=== PATIENT | female | born 1960 | race Caucasian/White ===

== ENCOUNTER 2017-06-27 07:47 | Inpatient (IN) | payer BC ==
--- NOTE | 2017-06-05 10:14 | HISTORY & PHYSICAL EXAMINATION ---
DATE OF ADMISSION: 06/27/2017 PROCEDURE: Left total knee replacement. HISTORY OF PRESENT ILLNESS: The patient is a pleasant 56-year-old female who presents today for preop evaluation prior to left knee replacement. She states she was having pain in this knee for several years now, which has gradually worsened. It has now gotten to the point that it is affecting her daily activities including walking, standing, going up and down steps. She has tried previous oral anti-inflammatories including Aleve without relief. She has had previous injections including Synvisc-One and cortisone without relief. At this point in time, she has failed conservative measures and would like to proceed with left knee replacement. PAST MEDICAL HISTORY: 1. Hypothyroidism. 2. GERD. ALLERGIES: No known drug allergies. CURRENT MEDICATIONS: 1. Aleve as needed for pain. 2. Vitamin B12. 3. Vitamin D3. 4. Dexilant 60 mg daily. 5. Levothyroxine. PAST SURGICAL HISTORY: 1. Appendectomy. 2. Hysterectomy. 3. Cholecystectomy. FAMILY HISTORY: Noncontributory. 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 Denies any history of smoking or tobacco use. No alcohol consumption. REVIEW OF SYSTEMS: Otherwise negative. Please see HPI for pertinent positives. PHYSICAL EXAMINATION: GENERAL: A pleasant 56-year-old female in no acute distress, alert and oriented x3. She is 5 feet 6 inches, weighs 180 pounds. VITAL SIGNS: Blood pressure is 138/72, pulse 68, O2 sat 100%. HEENT: Normocephalic and atraumatic. CARDIAC: Regular rate and rhythm. No murmurs or gallops appreciated. Resting pulse 68 beats per minute. LUNGS: Clear to auscultation without rales or wheeze bilaterally. ABDOMEN: Soft, nontender. Bowel sounds present. EXTREMITIES: Left lower extremity is neurovascularly intact. Calves are soft and nontender. DP pulse +2. Demonstrates good quad tone. Straight leg raise without lag. No erythema or warmth. Mild effusion. Positive crepitation with motion. Range of motion is 0/5/110. Knee is ligamentously stable. IMAGING: Review of the left knee showed findings consistent with degenerative joint disease including joint space narrowing, subchondral sclerosis, osteophyte formation noted. Complete loss of joint space of the patellofemoral joint and lateral compartment. IMPRESSION: 1. Left knee degenerative joint disease. 2. Past medical history as outlined above. PLAN: Further care discussed with patient. At this point in time, has failed conservative measures and would like to proceed with a left knee replacement. We will plan on discharge home with home health therapy, otherwise she has no other questions or concerns.
[2017-06-05 11:58] VITALS: BMI 28.0
--- NOTE | 2017-06-05 12:20 | PAT Medication Instructions ---
Service Date Jun 05, 2017. Current Home Medication List Cholecalciferol (Vitamin D3), 1 TAB PO QAM Cyanocobalamin (Vitamin B12), 5,000 MCG PO QAM Dexlansoprazole (Dexilant), 1 CAP PO QAM Levothyroxine Sodium (Levothyroxine Sodium), 1 TAB PO QAM Multiple Vitamins W/ Minerals (Centrum Adults), 1 TAB PO QAM Nutritional Supplements (Juice Plus Fibre), 1 CAP PO QAM Medication Instructions For Your Scheduled Surgery - Hold the following medications the morning of surgery: Nutritional Supplements (Juice Plus Fibre), 1 CAP PO QAM Multiple Vitamins W/ Minerals (Centrum Adults), 1 TAB PO QAM Cholecalciferol (Vitamin D3), 1 TAB PO QAM Cyanocobalamin (Vitamin B12), 5,000 MCG PO QAM - Take the following medications the morning of surgery with a sip of water OTHERWISE NOTHING TO EAT OR DRINK AFTER MIDNIGHT: Dexlansoprazole (Dexilant), 1 CAP PO QAM Levothyroxine Sodium (Levothyroxine Sodium), 1 TAB PO QAM If you have any questions please call us at [phone] or [phone] or [phone]
--- NOTE | 2017-06-05 13:15 | DIAGNOSTIC IMAGING REPORT ---
TWO VIEW CHEST CLINICAL HISTORY: Preoperative examination. FINDINGS: PA and lateral chest radiographs are obtained. No prior studies are available for comparison at the time of dictation. The cardiomediastinal silhouette is unremarkable. There is atherosclerotic calcification of the thoracic aorta. Linear atelectasis is present at the left lung base. The lungs and pleural spaces are otherwise clear. Nodularity is question the left lower lobe. There is no pneumothorax. The there are healed right-sided rib fractures. Degenerative changes noted throughout the thoracic spine. Cholecystectomy clips are identified in the right upper quadrant. IMPRESSION: 1. No active disease in the chest. 2. Question nodularity in left lower chest. This may represent artifact/superimposition of shadows. A repeat examination with oblique views is recommended for reassessment. Electronically signed by: Abebe Costa M.D. 06/05/2017 1:13 PM Dictated Date/Time: 06/05/2017 1:12 PM
[2017-06-05 13:17] LABS: BASO % 0.4 %; BASO ABS # 0.02 K/uL (0-0.2); COMPLETE YES; EOS % 1.7 %; HEMATOCRIT 39.6 % (37-47); LYMPH % 32.9 %; LYMPH ABS # 1.74 K/uL (1.2-3.4); MEAN CELL VOLUME 84.8 fL (80-100); MEAN CORPUSCULAR HEMOGLOBIN 29.3 pg (25-34); MEAN CORPUSCULAR HGB CONC 34.6 g/dl (32-36); MEAN PLATELET VOLUME 9.9 fL (7.4-10.4); MONO % 2.6 %; NEUT % 62.4 %; PLATELET COUNT 159 K/uL (130-400); RED BLOOD COUNT 4.67 M/uL (4.2-5.4); WHITE BLOOD COUNT 5.29 K/uL (4.8-10.8)
[2017-06-05 13:28] LABS: URINE APPEARANCE CLEAR (CLEAR); URINE BILIRUBIN NEG (NEG); URINE COLOR YELLOW; URINE NITRITE NEG (NEG); URINE SPECIFIC GRAVITY 1.016 (1.000-1.030); UROBILINOGEN NEG (NEG); ZZUR CULT IF INDIC CLEAN CATCH YES
[2017-06-05 13:29] LABS: MANUAL MICROSCOPIC REQUIRED? NO; REVIEW REQ? NO
[2017-06-05 13:32] LABS: INR 0.9 (0.9-1.1); PARTIAL THROMBOPLASTIN RATIO 1.2
[2017-06-05 13:41] LABS: ESTIMATED AVERAGE GLUCOSE 100 mg/dl; HA1C FLAG Normal (Normal)
[2017-06-05 14:00] LABS: BUN/CREATININE RATIO 24.7 (10-20); CREATININE 0.66 mg/dl (0.60-1.20)
[~2017-06-27] VITALS: Ht 167.6 cm; Wt 79.4 kg
[2017-06-27] VITALS (8 sets, daily range): BP systolic 104–151; BP diastolic 64–102; PULSE 76–94; TEMP 36.3–36.9; O2SAT 96–99; Ht 167.6 cm; Wt 79.4 kg
[2017-06-27] MEDS: TRANEXAMIC ACID INJ 1,000 MG in SYRINGE 0 ML IV SCH ×2 (06:30→10:13)
--- NOTE | 2017-06-27 07:18 | History & Physical Bridge Note ---
H&P Re-Evaluation Bridge Note: I have examined the patient, reviewed the History & Physical and in the interval since the performance of the History & Physical I have noted the following changes of clinical significance: No changes noted
[~2017-06-27 07:47] MED LIST: ACETAMINOPHEN 500 MG TAB PO SCH; BUPIVACAINE 0.5 % 5 MG/1 ML PF 10ML VIAL ONE; CEFAZOLIN 1000MG IV PUSH 5 ML IV SCH; CHOL500021 PO; CYAN100020 PO; CeleBREX 200 MG CAP PO SCH; DEXAMETHASONE 4 MG TAB PO SCH; DEXL60CA4 PO; FAMOTIDINE 20 MG TAB PO SCH; GABAPENTIN 300 MG CAP PO SCH; LACTATED RINGER'S 1000ML 1,000 ML IV SCH; LACTATED RINGER'S 1000ML 500 ML IV ONE; LACTATED RINGER'S 1000ML IV SCH; LEVO100T7 PO; METOCLOPRAMIDE HCL 10 MG TAB PO SCH; MULT-610 PO; NUTR-218 PO; ROPIVACAINE 5MG/ML 30 ML 150 MG, BUPIVACAINE 0.5% MPF INJ 30 ML, EpINEphrine HCL INJ 0.... INFIL SCH
[2017-06-27] MEDS ORDERED: ONDANSETRON INJ 2 MG/ML 2 ML VIAL IV PRN ×2 (08:45→12:15)
[2017-06-27] MEDS ORDERED: EpHEDrine SULFATE INJ 50 MG/ML AMP IV PRN (08:45)
[2017-06-27] MEDS ORDERED: FENTANYL CITRATE INJ 50 MCG/1 ML 2 ML VIAL IV PRN (08:45)
[2017-06-27] MEDS ORDERED: ATROPINE SULFATE 0.1 MG/ML 5ML SYR IV PRN (08:45)
[2017-06-27] MEDS ORDERED: MIDAZOLAM HCL 1 MG/ML 2ML VIAL ONE (08:50)
[2017-06-27] MEDS ORDERED: POVIDONE-IODINE OP SOLN 30 ML BTL ONE (09:03)
[2017-06-27] MEDS ORDERED: ORTHO JOINT ANESTHETIC ONE (09:03)
[2017-06-27] MEDS ORDERED: BACITRACIN 50000 UNIT VIAL ONE (09:04)
[2017-06-27] MEDS ORDERED: LIDOCAINE HCL 2% 2 ML VIAL (20MG/ML) ONE (10:59)
[2017-06-27] MEDS ORDERED: PROPOFOL IV EMULSION 10 MG/ML 20 ML VIAL IV ONE (10:59)
--- NOTE | 2017-06-27 11:34 | [facility] Operative Report ---
Operative Report Operative Date Jun 27, 2017. Pre-Operative Diagnosis Left Knee Degenerative Joint Disease Post-Operative Diagnosis Left Knee Degenerative Joint Disease Procedure(s) Performed Left Total Knee Arthroplasty utilizing journey to patient-matched total knee arthroplasty size 4 femur 3 tibia 13 poly-[address] Nicola Sparks Clinical Director Surgeon(s) Bobo Alfonso PA-C Estimated Blood Loss 5ml Findings Patient presents severe end-stage Tri-Chlor milligrams joint disease valgus alignment subchondral sclerosis cystic changes marginal osteophytes nonresponse to conservative therapy including physical therapy anti-inflammatories relative rest activity modification bracing for left total knee arthroplasty Specimens A. Left knee bone and tissue Complication(s) None Disposition Recovery Room / PACU Indications Patient presents with severe end-stage tricompartmental degenerative joint disease valgus alignment subchondral sclerosis cystic changes osteophyte formation failing attempts at conservative management including injections physical therapy anti-inflammatories relative rest activity modification Description of Procedure After proper prepping and draping of the left lower extremity anterior midline incision was made over the region of the extensor extensor mechanism after meticulous hemostasis was obtained and maintained in subcutaneous tissues a medial parapatellar incision was made The patella was subluxed lateralward the medial lateral gutter were cleaned from any hypertrophic synovitis and scar tissue of the distal femoral block was placed and the distal femoral osteotomy cut was made subsequently the chamfers anterior and posterior osteotomy cuts were made utilizing the 4-in-1 block the tibia was subsequently subluxed anteriorward medial and ateral meniscal remnants were excised in their entirety remnants of the anterior and posterior cruciate ligaments were excised in their entirety excellent exposure of the proximal tibia was obtained the tibial osteotomy guide was placed on the proximal tibial osteotomy cut was made once again the knee was irrigated with copious amounts of sterile saline solution the patella was subsequently everted lateralward thickened scar tissue around the patella was removed the patella was subsequently cut utilizing a freehand technique and was drilled prepared for final preparation and placement of patella socially flexion-extension gaps were checked and the equal and symmetric trials were placed to the appropriate femoral and tibial trials with poly-spacer being placed for equal flexion and extension gaps and full range of motion including extension to 0 and flexion to 140 the trial components after having been taken to recovery range of motion was subsequently removed meticulous hemostasis was obtained and maintained subsequently a knee block injection of joint cocktail including ropivacaine 0.5% 150 mg. Bupivacaine 0.5 % epinephrine 1-200,030 mL's toradol 30 mg dexamethasone 4 mg ketamine 10 mg clonidine 100 micrograms normal saline solution 30 mg was infiltrated into the soft tissues of the posterior knee medial lateral gutters and periosteal synovium special attention was paid to protect neurovascular structures at all times subsequently trial components having been removed the knee was irrigated with sterile saline solution. debris was removed the proximal tibia was subsequently prepared and was made ready for the placement of the tibial component tibial component was also cemented and tamped into position the femoral component was subsequently placed and cemented in the position the patellar component was subsequently cemented in position because hemostasis once again obtained and maintained wound having been thoroughly irrigated with debridement and debridement lavage was performed as well as a medial parapatellar incision closed with #1 Vicryl in interrupted fashion subcutaneous was closed with #2 Vicryl skin was closed with skin clips. PA-C was necessary for prepping and drapping as well as wound closure of deep fascia Sub cutaneous tissue and skin and was necessary for the case. A sterile compressive dressing was placed patient was taken to recovery in stable condition of report dictated by Bridger I attest to the content of the Intraoperative Record and any orders documented therein. Any exceptions are noted below. I attest to the content of the Intraoperative Record and any orders documented therein. Any exceptions are noted below.
[2017-06-27] MEDS ORDERED: MAGNESIUM HYDROXIDE SUSP 30 ML UDC PO PRN (12:15)
[2017-06-27] MEDS ORDERED: ZOLPIDEM TARTRATE 5 MG TAB PO PRN (12:15)
[2017-06-27] MEDS ORDERED: OXYCODONE HCL IR 5 MG TAB (IMMEDIATE RELEASE) PO PRN (12:15)
[2017-06-27] MEDS ORDERED: MoRPHine SULFATE 2 MG/ML CARP IV PRN (12:15)
[2017-06-27] MEDS ORDERED: ALUMINUM/MAGNESIUM/SIMETH (MAALOX MAX) 30 ML UDC PO PRN (12:15)
[2017-06-27] MEDS ORDERED: SOD PHOSPHATE/SOD BIPHOSPHATE ENEMA 132 ML BTL PR PRN (12:15)
[2017-06-27] MEDS ORDERED: BISACODYL 10 MG SUPP PR PRN (12:15)
[2017-06-27] MEDS ORDERED: KETOROLAC TROMETHAMINE 30 MG/ML VIAL IV. PRN (12:15)
--- NOTE | 2017-06-27 12:45 | DIAGNOSTIC IMAGING REPORT ---
L KNEE 1 OR 2 VIEWS ROUTINE CLINICAL HISTORY: Postop knee arthroplasty COMPARISON: None. DISCUSSION: There are postsurgical changes of a total left knee arthroplasty and patellar resurfacing. The femoral and tibial components appear well seated. There are overlying surgical drains. There is air in soft tissues consistent with recent surgery IMPRESSION: Postsurgical changes of a total left knee arthroplasty. Electronically signed by: Tommy Burger M.D. 06/27/2017 12:44 PM Dictated Date/Time: 06/27/2017 12:44 PM
--- NOTE | 2017-06-27 13:38 | Anesthesiology Progress Note ---
Anesthesia Post Op Note Date & Time Jun 27, 2017 at 13:38 Vital Signs Pain Intensity: 0 Vital Signs Past 12 Hours Date Time Temp Pulse Resp B/P (MAP) Pulse Ox O2 Delivery O2 Flow Rate FiO2 06/27/17 13:10 37.5 87 16 118/80 98 Nasal Cannula 2 06/27/17 13:00 37.5 87 16 116/74 98 Nasal Cannula 2 06/27/17 12:50 37.5 85 16 128/80 99 Nasal Cannula 2 06/27/17 12:40 87 18 130/76 99 Nasal Cannula 2 06/27/17 12:30 85 18 130/84 99 Nasal Cannula 2 06/27/17 12:20 87 18 127/81 99 Nasal Cannula 2 06/27/17 12:10 36.8 88 18 136/82 99 Nasal Cannula 2 06/27/17 08:28 36.6 94 20 151/102 99 Room Air Notes Mental Status: alert / awake / arousable, participated in evaluation Pt Amnestic to Procedure: Yes Nausea / Vomiting: adequately controlled Pain: adequately controlled Airway Patency, RR, SpO2: stable & adequate BP & HR: stable & adequate Hydration State: stable & adequate Neuraxial Anesthesia: was administered, sensory block is resolving Anesthetic Complications: no major complications apparent
[2017-06-27] MEDS ORDERED: MoRPHine SULFATE 10 MG/ML CARP/VIAL IV PRN (14:30)
[2017-06-27] MEDS ORDERED: MoRPHine SULFATE 4 MG/ML 1 ML CARP\\VIAL IV PRN (14:30)
[2017-06-27] MEDS: D5W AND 1/2NSS + 20MEQ KCL 1,000 ML IV SCH (16:29)
[2017-06-27] MEDS: CEFAZOLIN IV 2,000 MG in SYRINGE 0 ML IV SCH (18:04)
[2017-06-27] MEDS ORDERED: SENNA 8.6 MG TAB PO SCH (21:00)
[2017-06-27] MEDS: DOCUSATE SODIUM 100 MG CAP PO SCH (21:00)
[2017-06-27] MEDS: ASPIRIN 81 MG ECTAB PO SCH (21:00)
[2017-06-27] MEDS: ACETAMINOPHEN 500 MG TAB PO SCH (21:01)
[2017-06-28] MEDS: D5W AND 1/2NSS + 20MEQ KCL 1,000 ML IV SCH ×2 (00:24→10:38)
[2017-06-28] MEDS: CEFAZOLIN IV 2,000 MG in SYRINGE 0 ML IV SCH (02:01)
[2017-06-28 03:15] VITALS: BP 118/73; PULSE 71; TEMP 36.5; O2SAT 97
[2017-06-28] MEDS: ACETAMINOPHEN 500 MG TAB PO SCH ×2 (05:54→13:08)
[2017-06-28] MEDS ORDERED: LEVOTHYROXINE 100 MCG TAB PO SCH (06:00)
[2017-06-28 06:57] LABS: HEMATOCRIT 34.9 % (37-47); MEAN CELL VOLUME 85.3 fL (80-100); MEAN CORPUSCULAR HEMOGLOBIN 29.6 pg (25-34); MEAN CORPUSCULAR HGB CONC 34.7 g/dl (32-36); MEAN PLATELET VOLUME 9.9 fL (7.4-10.4); PLATELET COUNT 199 K/uL (130-400); RED BLOOD COUNT 4.09 M/uL (4.2-5.4); WHITE BLOOD COUNT 12.66 K/uL (4.8-10.8)
[2017-06-28 07:04] LABS: PROTHROMBIN TIME (PATIENT) 10.4 SECONDS (9.0-12.0)
[2017-06-28 07:28] LABS: BUN/CREATININE RATIO 18.6 (10-20); CALCIUM 8.3 mg/dl (8.5-10.1); CREATININE 0.66 mg/dl (0.60-1.20); POTASSIUM 4.1 mmol/L (3.5-5.1)
--- NOTE | 2017-06-28 08:17 | Orthopedic Progress Note ---
Orthopedic Progress Note Date of Service Jun 28, 2017. Subjective Post OP Day: 1 Reports: feeling well, Denies: chest pain, SOB, nausea / vomiting, light headedness, calf pain Objective calves soft nontender, N/V intact, dressing C/D/I, A&O x3, toes mobile, hemovac drainage (110/175CC PER SHIFT) Date Time Temp Pulse Resp B/P (MAP) Pulse Ox O2 Delivery O2 Flow Rate FiO2 06/28/17 03:15 36.5 71 16 118/73 (88) 97 Room Air 06/28/17 00:20 Room Air 06/27/17 22:56 36.4 76 16 104/64 (77) 98 Room Air 06/27/17 20:22 36.5 76 16 104/66 (79) 99 Room Air 06/27/17 16:23 36.5 86 16 110/73 (85) 96 Room Air 06/27/17 15:30 Room Air 06/27/17 15:21 36.3 84 16 107/68 (81) 98 Nasal Cannula 2.0 06/27/17 14:14 85 18 115/78 (90) 06/27/17 13:50 87 18 107/75 (86) 06/27/17 13:20 Nasal Cannula 2.0 06/27/17 13:20 36.9 86 16 115/76 (89) 99 Nasal Cannula 2.0 06/27/17 13:10 37.5 87 16 118/80 98 Nasal Cannula 2 06/27/17 13:00 37.5 87 16 116/74 98 Nasal Cannula 2 06/27/17 12:50 37.5 85 16 128/80 99 Nasal Cannula 2 06/27/17 12:40 87 18 130/76 99 Nasal Cannula 2 06/27/17 12:30 85 18 130/84 99 Nasal Cannula 2 06/27/17 12:20 87 18 127/81 99 Nasal Cannula 2 06/27/17 12:10 36.8 88 18 136/82 99 Nasal Cannula 2 06/27/17 08:28 36.6 94 20 151/102 99 Room Air Laboratory Results 24 Hours: Test 06/28/17 06:01 Hematocrit 34.9 % Hemoglobin 12.1 g/dL Prothromb Time International Ratio 1.0 Prothrombin Time 10.4 SECONDS Assessment & Plan Assessment: POD#1 SP LEFT TKA Plan: PT/OT DVT PROPH- ASA 81MG PAIN MANAGEMENT DC PLANNING- LIKELY DC HOME TODAY WITH ADVANTAGE. WILL DC DRESSING AND DRAIN IN AM AT HOME. Inhouse Planning Pain Management: Celebrex, PO Tylenol, Oxy IR DVT Prophylaxis: TEDs, SCDs, ASA
[2017-06-28] MEDS ORDERED: ACET-24 PO (08:18)
[2017-06-28] MEDS ORDERED: SENN-61 PO (08:18)
[2017-06-28] MEDS ORDERED: RXC5 PO (08:18)
[2017-06-28] MEDS ORDERED: CLB200 PO (08:18)
[2017-06-28] MEDS ORDERED: ASPEC81 PO (08:18)
[2017-06-28] MEDS ORDERED: ONDA8TAB6 PO (08:18)
--- NOTE | 2017-06-28 08:19 | Discharge Instructions ---
Discharge Instructions Date of Service Jun 28, 2017. Admission Reason for Admission: Left Knee Osteoarthritis Discharge Discharge Diagnosis / Problem: SP LEFT TKA Discharge Goals Goal(s): Decrease discomfort, Improve function, Increase independence Activity Recommendations Activity Limitations: per Instructions/Follow-up section . Instructions / Follow-Up Instructions / Follow-Up ACTIVITY RECOMMENDATIONS: SELF CARE INSTRUCTIONS AFTER TOTAL KNEE REPLACEMENT A. You may need to continue a physical therapy program after discharge from the hospital. There are several options available to you. Your doctor will assist you in selecting the best one for you. 1. An out-patient facility 2 to 3 times a week for therapy or home therapy. 2. Continue working on all exercises taught to you in the hospital. Your goals should be to increase bending of your knee to 90 degrees and beyond and to fully straighten your knee. B. You may progress at your own pace from walking with a walker or crutches to a cane; then to no assistive devices. C. Make walking a part of your daily routine. Be up as much as comfortable with rest periods throughout the day. Rest with leg elevation is very important. Use the ice wrap frequently for the first 3-4 weeks. D. There are no restrictions on activities. You may ride in a car, shop, participate in intensive care anaesthetist and all social activities. E. Wear the long elastic stockings (GERTRUDE hose) 20 hours a day for 2 weeks after surgery. They can be removed several times a day for laundering and for a bath. F. You may shower, no tub baths until cleared by your doctor. SPECIAL CARE INSTRUCTIONS: VERY IMPORTANT TO READ AND REVIEW A. There are a few signs you need to watch for after you are home. Call [facility] if you notice any of the followin. Increased severe knee pain. Some pain is expected especially when you exercise. 2. Increased swelling in your leg or knee; pain or swelling of the calf muscle in either lower leg. 3. Any fluid drainage from the incision. 4. Shortness of breath or chest pain. B. Please call [facility] at if you have any concerns or questions about your operation or recovery. The doctor or his nurse will return your call promptly. C. You must take antibiotics before dental work, bladder, bowel or other surgery. Your doctor will provide you with a permanent care to carry describing this precaution. IMPORTANT: * REMEMBER TO TAKE ASPIRIN, 81 MG, TWICE DAILY FOR 4 WEEKS UNLESS OTHERWISE DIRECTED. THIS IS YOUR BLOOD THINNER. * HIGH RISK PATIENTS MAY BE PRESCRIBED A STRONGER BLOOD THINNER. THIS WILL BE PROVIDED AT DISCHARGE. * CALL IF INCREASED PAIN, REDNESS, DRAINAGE OR FEVER GREATER THAT 101. * WEAR GERTRUDE HOSE 20 HOURS PER DAY FOR 2 WEEKS. DERMABOND Prineo- This is a mesh tape dressing that is covered with glue. It should remain in place until the incision is properly healed, usually 10-14 days. This dressing is designed to naturally slough off. You may trim the excess mesh tape as it peels off. Incision may be briefly wet in a shower. Dry immediately by blotting with a clean, dry towel. Do not bath or swim until instructed by your doctor. Do not scratch, rub, or pick at the dressing. Do not apply any topical ointments or lotions until dressing is completely removed and/or instructed by your doctor. There may be a small piece of suture material at one end of your incision. Do not pull or trim this. If it is bothersome or catching on clothing, you may cover it with a band-aid. FOLLOW UP VISIT: If appointment is not already scheduled: Please call [facility] to make a follow-up appointment for 2 weeks after your surgery at . Current Hospital Diet Patient's current hospital diet: Regular Diet Discharge Diet Recommended Diet: Regular Diet Procedures Procedures Performed: Left Total Knee Arthroplasty utilizing journey to patient-matched total knee arthroplasty size 4 femur 3 tibia 13 poly-29 oval patella Pending Studies Studies pending at discharge: no Laboratory Results Hemoglobin A1c Test 06/05/17 12:37 Range/Units Estimated Average Glucose 100 mg/dl Hemoglobin A1c 5.1 4.5-5.6 % Medical Emergencies . Who to Call and When: Medical Emergencies: If at any time you feel your situation is an emergency, please call 911 immediately. . Non-Emergent Contact Non-Emergency issues call your: Surgeon . "Provider Documentation" section prepared by Hyun Mota. . VTE Core Measure Inpt VTE Proph given/why not?: Other Anticoagulation, T.E.D. Stockings, SCD's
[2017-06-28 08:24] VITALS: BP 118/73; PULSE 71; TEMP 36.5; O2SAT 97
[2017-06-28] MEDS: TRAMADOL HCL 50 MG TAB PO PRN ×2 (08:52→13:08)
[2017-06-28] MEDS: DOCUSATE SODIUM 100 MG CAP PO SCH (08:53)
[2017-06-28] MEDS: ASPIRIN 81 MG ECTAB PO SCH (08:55)
[2017-06-28] MEDS ORDERED: CYANOCOBALAMIN 2,500 MCG SUBL TAB PO SCH (09:00)
[2017-06-28] MEDS ORDERED: PANTOprazole SOD 40 MG TAB PO SCH ×2 (09:00)
[2017-06-28] MEDS ORDERED: MULTIVITAMIN TAB PO SCH (09:00)
[2017-06-28] MEDS ORDERED: CHOLECALCIFEROL 1000 INTER.UNIT TAB PO SCH (09:00)
--- NOTE | 2017-06-28 12:54 | Anesthesiology Progress Note ---
Anesthesia Post Op Note Date & Time Jun 28, 2017 at 12:54 Vital Signs Pain Intensity: 2.0 Vital Signs Past 12 Hours Date Time Temp Pulse Resp B/P (MAP) Pulse Ox O2 Delivery O2 Flow Rate FiO2 06/28/17 08:24 36.5 71 16 97 Room Air 06/28/17 07:45 Room Air 06/28/17 03:15 36.5 71 16 118/73 (88) 97 Room Air Notes Mental Status: alert / awake / arousable, participated in evaluation Pt Amnestic to Procedure: Yes Nausea / Vomiting: adequately controlled Pain: adequately controlled Airway Patency, RR, SpO2: stable & adequate BP & HR: stable & adequate Hydration State: stable & adequate Neuraxial Anesthesia: sensory block resolved Anesthetic Complications: no major complications apparent
--- NOTE | 2017-06-28 19:16 | Discharge Summary ---
Orthopedic Discharge Summary Admission Date/Reason Jun 27, 2017 at 08:25 Left Knee Osteoarthritis. Discharge Date/Disposition Jun 28, 2017 Home with services Diagnosis Principal Diagnosis: left knee osteoarthritis Procedure(s) Performed Left Total Knee Arthroplasty utilizing journey to patient-matched total knee arthroplasty size 4 femur 3 tibia 13 poly-29 oval patella Consultations NONE Medication Reconciliation New Medications: Ondansetron Hcl (Zofran) 8 Mg Tab 8 MG PO Q8 PRN for Nausea, #20 TAB Acetaminophen (Sb Non-Aspirin Extra Stre) 500 Mg Tab 1000 MG PO Q8 for 30 Days, #180 TAB Aspirin (Aspirin EC Low Dose) 81 Mg Ectab 81 MG PO BID for 30 Days Celecoxib (Celebrex) 200 Mg Cap 200 MG PO BID, #60 CAP Oxycodone HCl (Oxycodone HCl) 5 Mg Tab 5-10 MG PO Q4H PRN for Pain, #60 TAB Senna (Senokot) 8.6 Mg Tab 17.2 MG PO HS for 14 Days, TAB Continued Medications: Cholecalciferol (Vitamin D3) 5,000 Unit Chw 1 TAB PO QAM Cyanocobalamin (Vitamin B12) 1,000 Mcg Tab 5000 MCG PO QAM Dexlansoprazole (Dexilant) 60 Mg Cap 1 CAP PO QAM Levothyroxine Sodium (Levothyroxine Sodium) 100 Mcg Tab 1 TAB PO QAM for 90 Days, #90 TAB 3 Refills Multiple Vitamins W/ Minerals (Centrum Adults) 1 Tab Tab 1 TAB PO QAM Nutritional Supplements (Juice Plus Fibre) 1 Liq Liq 1 CAP PO QAM Admission Physical Exam As per Admitting History & Physical. Hospital Course Patient was a same day admission after undergoing a successful left TKA. she tolerated the procedure well. Post-operatively, her activity was progressed and well tolerated. Please refer to daily progress notes and PT notes for complete details. After exam on 06/28/17, patient felt to be stable for discharge home with HHPT. Patient will f/u in the office in 2 weeks for further evaluation including x-rays and incision check, sooner if having any issues or concerns. Below are pertinent labs/studies during their hospital stay: Last Vital Signs Documentation Date Time Temp Pulse Resp B/P (MAP) Pulse Ox O2 Delivery O2 Flow Rate FiO2 06/28/17 08:24 36.5 71 16 97 Room Air 06/28/17 03:15 118/73 (88) 06/27/17 15:21 2.0 Test 06/28/17 06:01 Hematocrit 34.9 % Hemoglobin 12.1 g/dL Prothromb Time International Ratio 1.0 Prothrombin Time 10.4 SECONDS Discharge Instructions ACTIVITY RECOMMENDATIONS: SELF CARE INSTRUCTIONS AFTER TOTAL KNEE REPLACEMENT A. You may need to continue a physical therapy program after discharge from the hospital. There are several options available to you. Your doctor will assist you in selecting the best one for you. 1. An out-patient facility 2 to 3 times a week for therapy or home therapy. 2. Continue working on all exercises taught to you in the hospital. Your goals should be to increase bending of your knee to 90 degrees and beyond and to fully straighten your knee. B. You may progress at your own pace from walking with a walker or crutches to a cane; then to no assistive devices. C. Make walking a part of your daily routine. Be up as much as comfortable with rest periods throughout the day. Rest with leg elevation is very important. Use the ice wrap frequently for the first 3-4 weeks. D. There are no restrictions on activities. You may ride in a car, shop, participate in painter aircraft and all social activities. E. Wear the long elastic stockings (GERTRUDE hose) 20 hours a day for 2 weeks after surgery. They can be removed several times a day for laundering and for a bath. F. You may shower, no tub baths until cleared by your doctor. SPECIAL CARE INSTRUCTIONS: VERY IMPORTANT TO READ AND REVIEW A. There are a few signs you need to watch for after you are home. Call [facility] if you notice any of the followin. Increased severe knee pain. Some pain is expected especially when you exercise. 2. Increased swelling in your leg or knee; pain or swelling of the calf muscle in either lower leg. 3. Any fluid drainage from the incision. 4. Shortness of breath or chest pain. B. Please call [facility] at if you have any concerns or questions about your operation or recovery. The doctor or his nurse will return your call promptly. C. You must take antibiotics before dental work, bladder, bowel or other surgery. Your doctor will provide you with a permanent care to carry describing this precaution. IMPORTANT: * REMEMBER TO TAKE ASPIRIN, 81 MG, TWICE DAILY FOR 4 WEEKS UNLESS OTHERWISE DIRECTED. THIS IS YOUR BLOOD THINNER. * HIGH RISK PATIENTS MAY BE PRESCRIBED A STRONGER BLOOD THINNER. THIS WILL BE PROVIDED AT DISCHARGE. * CALL IF INCREASED PAIN, REDNESS, DRAINAGE OR FEVER GREATER THAT 101. * WEAR GERTRUDE HOSE 20 HOURS PER DAY FOR 2 WEEKS. * DERMABOND Prineo- This is a mesh tape dressing that is covered with glue. It should remain in place until the incision is properly healed, usually 10-14 days. This dressing is designed to naturally slough off. You may trim the excess mesh tape as it peels off. Incision may be briefly wet in a shower. Dry immediately by blotting with a clean, dry towel. Do not bath or swim until instructed by your doctor. Do not scratch, rub, or pick at the dressing. Do not apply any topical ointments or lotions until dressing is completely removed and/or instructed by your doctor. There may be a small piece of suture material at one end of your incision. Do not pull or trim this. If it is bothersome or catching on clothing, you may cover it with a band-aid. FOLLOW UP VISIT: If appointment is not already scheduled: Please call [facility] to make a follow-up appointment for 2 weeks after your surgery at .
[2017-06-28] MEDS ORDERED: CeleBREX 200 MG CAP PO SCH (21:00)
== END 2017-06-28 13:42 | disposition home health service (06) | DRG 470 ==
LOC: C.ACU 07:47 → C.3E 08:25 → ENRESERV 12:53
PROVIDERS: ADMIT Orthopaedic Surgery; ATTEND Orthopaedic Surgery
PROC: 0SRD0J9 Replacement of Left Knee Joint with Synthetic Substitute, Cemented, Open Approach (ICD-10-PCS; principal; 2017-06-26)
DX: M17.12 Unilateral primary osteoarthritis, left knee (principal); K21.9 Gastro-esophageal reflux disease without esophagitis; E03.9 Hypothyroidism, unspecified

== ENCOUNTER → 2017-08-17 | Outpatient (CLI) | payer BC ==
[~2017-08-17] MED LIST changes: +ACET-24 PO; -ACETAMINOPHEN 500 MG TAB PO SCH; +ASPEC81 PO; -BUPIVACAINE 0.5 % 5 MG/1 ML PF 10ML VIAL ONE; -CEFAZOLIN 1000MG IV PUSH 5 ML IV SCH; +CLB200 PO; -CeleBREX 200 MG CAP PO SCH; -DEXAMETHASONE 4 MG TAB PO SCH; -FAMOTIDINE 20 MG TAB PO SCH; -GABAPENTIN 300 MG CAP PO SCH; -LACTATED RINGER'S 1000ML 1,000 ML IV SCH; -LACTATED RINGER'S 1000ML 500 ML IV ONE; -LACTATED RINGER'S 1000ML IV SCH; -METOCLOPRAMIDE HCL 10 MG TAB PO SCH; +ONDA8TAB6 PO; -ROPIVACAINE 5MG/ML 30 ML 150 MG, BUPIVACAINE 0.5% MPF INJ 30 ML, EpINEphrine HCL INJ 0.... INFIL SCH; +RXC5 PO; +SENN-61 PO
--- NOTE | 2017-08-17 09:44 | DIAGNOSTIC IMAGING REPORT ---
CHEST-PA,LAT AND OBLIQUE VIEWS CLINICAL HISTORY: XX abnormal chest x-ray COMPARISON STUDY: 06/05/2017 FINDINGS: Repeat examination of the chest including oblique projections with nipple markers shows no evidence for significant parenchymal nodularity. Density previously described appears to be artifactual. IMPRESSION: No acute process of the chest. The density previously described in the left hemithorax appear to relate to overlap artifact. The above report was generated using voice recognition software. It may contain grammatical, syntax or spelling errors. Electronically signed by: Bobo Randle M.D. 08/17/2017 9:42 AM Dictated Date/Time: 08/17/2017 9:42 AM
== END | disposition home or self-care (01) ==
LOC: C.RAD 09:20
PROVIDERS: ATTEND Family Medicine
DX: Z01.818 Encounter for other preprocedural examination (principal)